=== PATIENT | female | born 1955 | race Caucasian/White ===

== ENCOUNTER 2024-11-24 09:12 | Emergency (ER) | payer MEDICARE, SELFPAY ==
[2024-11-24 09:13] VITALS: BMI 28.0
[2024-11-24 09:32] VITALS: BP 151/94; PULSE 117; RESP 18; TEMP 36.6; O2SAT 95
--- NOTE | 2024-11-24 10:00 | PD.EDDENTL ---
ED Dental RME/HPI General Chief complaint: Dental/Oral/Throat Stated complaint: LEFT JAW SWELLING Time Seen by Provider: 11/24/24 09:28 Arrival date/time: 11/24/24 09:12 This is a 69-year-old female that comes to the emergency room with complaint of left facial swelling that started last night early this morning. Patient states she has been getting some dental work done. Patient has a history of COPD, high blood pressure. Patient denies any chest pain shortness of breath. No tongue swelling uvula at midline. Related Data Home Medications ?Medication ?Instructions ?Recorded ?Confirmed hydrochlorothiazide 12.5 mg capsule 25 mg PO QAM 12/27/17 11/03/19 ipratropium 20 mcg-albuterol 100 See Protocol inhalation DAILY 12/27/17 11/03/19 mcg/actuation mist for inhalation breathing (Combivent Respimat) montelukast 10 mg tablet 10 mg PO QPM 10/26/18 11/03/19 albuterol sulfate 4 mg tablet 4 mg PO BID 11/03/19 11/03/19 lisinopril 5 mg tablet 5 mg PO QDAY 11/03/19 11/03/19 umeclidinium 62.5 mcg-vilanterol 1 inh inhalation QDAY 11/03/19 11/03/19 25 mcg/actuation powdr for inhalation (Anoro Ellipta) Previous Rx's ?Medication ?Instructions ?Recorded omeprazole 40 mg capsule,delayed 40 mg PO QDAY #30 caps 12/27/17 release prednisone 20 mg tablet 40 mg (2 x 20 mg) PO QDAY #10 tabs 10/28/18 azithromycin 500 mg tablet See Rx Instructions PO .COMPLEX #3 11/06/19 tabs clindamycin HCl 300 mg capsule 300 mg PO Q6H 7 days #28 caps 11/24/24 ibuprofen 800 mg tablet 800 mg PO Q6H PRN pain #10 tabs 11/24/24 Course Orders Category Date Time Status Clindamycin Vial [Cleocin vial] Med 11/24/24 09:59 Once 600 mg IM X1 ONE HYDROcodone*/APAP 5/325 [[place] 5/325] Med 11/24/24 09:59 Once 2 tab PO X1 ONE Ibuprofen Tab [Motrin Tab] Med 11/24/24 09:59 Once 800 mg PO X1 ONE Vital Signs Vital signs: Vital Signs Temperature 97.9 F 11/24/24 09:32 Pulse Rate 117 H 11/24/24 09:32 Respiratory Rate 18 11/24/24 09:32 Blood Pressure 151/94 H 11/24/24 09:32 Pulse Oximetry (%) 95 11/24/24 09:32 Oxygen Delivery Method Room Air 11/24/24 09:32 Dental / Oral MDM Narrative MDM Narrative:: I spoke to patient at length. Will treat patient with IM Cleocin. I will send patient home with clindamycin by mouth. Patient told to follow-up with primary provider on Tuesday and make an appointment. Patient told to come back to the emergency room if symptoms change or worsen. Patient comfortable plan of care. Discharge Plan Plan Patient Disposition: HOME (Self Care) Patient condition on transfer: Stable Prescriptions/Referrals Prescriptions/Med Rec: New clindamycin HCl 300 mg capsule 300 mg PO Q6H 7 Days Qty: 28 0RF ibuprofen 800 mg tablet 800 mg PO Q6H PRN (Reason: pain) Qty: 10 0RF No Action montelukast 10 mg Tablet 10 mg PO QPM prednisone 20 mg tablet 40 mg PO QDAY Qty: 10 0RF albuterol sulfate 4 mg Tablet 4 mg PO BID lisinopril 5 mg Tablet 5 mg PO QDAY Anoro Ellipta 62.5-25 mcg/actuation Blister With Device 1 inh INHALATION QDAY azithromycin 500 mg tablet See Rx Instructions .ROUTE .COMPLEX Qty: 3 0RF Rx Instructions: take 500 mg once daily for 3 days hydrochlorothiazide 12.5 mg Capsule 25 mg PO QAM Combivent Respimat 20-100 mcg/actuation Mist See Protocol Inhalation DAILY Protocol: Age Greater than 75 Protocol Text: Age less than 75 years, to be administred with initial in subcutaneous dose omeprazole 40 mg capsule,delayed release(DR/EC) 40 mg PO QDAY Qty: 30 0RF Rx Instructions: swallow whole; do not crush, chew, dissolve, cut, break Problem List Clinical Impression: Cellulitis Patient/Caregiver Discharge Instructions Discharge Activity: activity as tolerated Education Materials: ED Cellulitis Additional Instructions: Follow up with primary provider in 1-2 days. Come back to ED if symptoms change or worsen. Please use warm compresses for 15 minutes every 4 hours. To the left cheek. Print Language: Persian Stand Alone Forms: [employer]., Patient Portal Info Letter PA/CORRECTIVE THERAPY AIDE TEACHER Supervising Physician PA/CORRECTIVE THERAPY AIDE TEACHER Supervising Physician: [email or web address]
[2024-11-24] MEDS: HYDROcodone/APAP 5/325 TABLET 2 TAB PO (10:26)
[2024-11-24] MEDS: IBUPROFEN TAB 400 MG TABLET 800 MG PO (10:26)
[2024-11-24] MEDS: CLINDAMYCIN PHOS INJ 150 MG/ML VIAL 6 ML 600 MG IM (10:27)
== END 2024-11-24 10:38 | disposition home or self-care (01) ==
LOC: SERX 10:11
PROVIDERS: Emergency Provider Family Medicine; PCP Internal Medicine
DX: K12.2 Cellulitis and abscess of mouth (principal); J44.9 Chronic obstructive pulmonary disease, unspecified
CPT/HCPCS: 96372; 99283; J0736; A9270

== ENCOUNTER → 2025-01-25 | Outpatient (CLI) | payer MEDICARE, SELFPAY ==
--- NOTE | 2025-01-25 14:15 | XR_ITS ---
Examination: Screening digital mammography, bilateral Computer aided detection 3-D breast Tomosynthesis, bilateral Date and time of exam: January 25, 2025 1417 hours Compared to mammograms dating to December 03, 2015 Indication: Screening Technique: Nonmagnified MLO, CC views of the breasts to been obtained, reconstructed from 3-D Tomosynthesis images. R2 computer aided detection program utilized for evaluation of suspicious masses and/or abnormal calcifications. 3-D Tomosynthesis images obtained. Findings: Scattered areas of fibroglandular density. 5 mm focal asymmetry upper right breast MLO view, 5.8 cm from the nipple Benign calcifications Impression: BI-RADS Category 0: Incomplete: Additional evaluation is needed Recommend follow-up spot tomographic views upper outer quadrant right breast anterior depth to assess 5 mm focal asymmetry upper right breast on the current MLO view as well as right breast sonography to complete the workup
== END | disposition home or self-care (01) ==
PROVIDERS: Referring Provider Internal Medicine; Visit Provider Internal Medicine
DX: Z12.31 Encounter for screening mammogram for malignant neoplasm of breast (principal); N64.89 Other specified disorders of breast; R92.1 Mammographic calcification found on diagnostic imaging of breast
CPT/HCPCS: 77063; 77067